=== PATIENT | female | born 2000 | race African-American/Black ===

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

== ENCOUNTER 2023-04-08 17:31 | Emergency (ER) | payer OTHER ==
[2023-04-08 17:38] VITALS: BP 123/68; PULSE 90; RESP 18; TEMP 99.3; BMI 23.8
[2023-04-08] MEDS ORDERED: ACETAMINOPHEN 500 MG TABLET (FP) PO ONE (18:10)
[2023-04-08] MEDS ORDERED: ACETAMINOPHEN 325 MG TABLET (FP) ONE (19:00)
[2023-04-08] MEDS ORDERED: LIDOCAINE HCL 1%, 10 MG/ML (50 mL VIAL) SQ ONE (19:25)
[2023-04-08] MEDS ORDERED: LIDOCAINE HCL 1%, 10 MG/ML (20ML VIAL) ONE (19:26)
== END 2023-04-08 20:36 | disposition home or self-care (01) ==
LOC: JER 17:31
PROC: 0HQ6XZZ Repair Back Skin, External Approach (ICD-10-PCS; principal; 2023-04-08)
DX: S21.212A Laceration without foreign body of left back wall of thorax without penetration into thoracic cavity, initial encounter (principal); R51.9 Headache, unspecified; R09.89 Other specified symptoms and signs involving the circulatory and respiratory systems; W01.198A Fall on same level from slipping, tripping and stumbling with subsequent striking against other object, initial encounter
CPT/HCPCS: 73010-TC-FY; 99283-25